=== PATIENT | male | born 1945 | race Asian ===

== ENCOUNTER → 2019-02-06 | Outpatient (CLI) | payer MEDICARE | END | disposition home or self-care (01) | LOC: PROCWHC3 12:18 | PROVIDERS: ATTEND Internal Medicine | DX: Z53.9 Procedure and treatment not carried out, unspecified reason (principal) ==

== ENCOUNTER 2019-07-27 12:01 | Inpatient (IN) | payer MEDICARE ==
[2019-07-27] MEDS ORDERED: SODIUM CHLORIDE 0.9% 500 ML 500 ML IV STA (12:10)
[2019-07-27 13:20] LABS: Basophils # (A) 0.3 k/uL (0-0.2); Basophils % (A) 3 %; Eosinophils # (A) 0.3 k/uL (0-0.7); Eosinophils % (A) 3 %; HCT 48.6 % (39.0-53.0); Lymphocytes # (A) 1.6 k/uL (1.0-4.8); Lymphocytes % (A) 14 %; MCH 31.3 pg (25.0-35.0); MCV 94.9 fL (80.0-100.0); Mean Platelet Volume 7.7; Monocytes # (A) 0.6 k/uL (0-1.0); Monocytes % (A) 5 %; Neutrophils # (A) 8.4 k/uL (1.3-7.7); Neutrophils % (A) 74 %; Platelet Count 240 k/uL (150-450); RBC 5.12 m/uL (4.30-5.90); WBC 11.4 k/uL (3.8-10.6)
[2019-07-27 13:29] LABS: Partial Thromboplastin Time 24.5 sec (22.0-30.0); Prothrombin Time 10.8 sec (9.0-12.0)
--- NOTE | 2019-07-27 13:30 | XR ---
EXAMINATION TYPE: XR chest 2V DATE OF EXAM: 07/27/2019 COMPARISON: 10/16/14 HISTORY: Shortness of breath TECHNIQUE: Frontal and lateral views of the chest are obtained. FINDINGS: Scattered senescent parenchymal changes noted. Hyperinflation compatible with COPD. No evidence for infiltrate. No evidence for atelectasis. Heart size is stable. Mediastinal structures are stable and grossly unremarkable. No evidence for hilar prominence. Degenerative changes dorsal spine. IMPRESSION: 1. No evidence for acute pulmonary disease.
[2019-07-27 13:33] LABS: ALT 14 U/L (4-49); AST 46 U/L (17-59); African American GFR (CKD) 57 (>60 ml/min/1.73 sqM); Albumin 4.1 g/dL (3.5-5.0); Alkaline Phosphatase 36 U/L (38-126); Anion Gap 8 mmol/L; Blood Urea Nitrogen 22 mg/dL (9-20); Calcium 8.9 mg/dL (8.4-10.2); Carbon Dioxide 31 mmol/L (22-30); Chloride 100 mmol/L (98-107); Creatine Kinase 96 U/L (55-170); Digoxin <0.4 ng/mL; Glucose 205 mg/dL (74-99); Magnesium 2.4 mg/dL (1.6-2.3); Non-African American GFR(CKD) 50 (>60 ml/min/1.73 sqM); Sodium 139 mmol/L (137-145); Total Bilirubin 0.8 mg/dL (0.2-1.3); Total Protein 7.3 g/dL (6.3-8.2)
--- NOTE | 2019-07-27 13:45 | ED ---
Arrhythmia/Palpitations HPI - General Chief Complaint: Arrhythmia/Palpitations Stated Complaint: CHEST PAIN Source: patient, family, EMS Mode of arrival: EMS Limitations: no limitations - History of Present Illness Initial Comments: The patient is a 74 male past medical history of diabetes, COPD and heart failure with AICD placement who presents to the emergency department from home. He sees Dr. Reynolds in office. He had a pacemaker placed by Dr. Garland in 2014. It is a [employer] device. States that today he was down in his basement with a friend doing some exertional work. States that he walked upstairs from the basement when his defibrillator went off. He sat down upstairs and states that one off again. He was different related to times in total. 2 times were witnessed by EMS when he was walking the stretcher. He is not on the monitor at this time. Patient states that he has had his defibrillator go off on him twice before however each time it was only once and he was never evaluated. States that the last his pacemaker was interrogated was one year ago in office. He denies feeling off prior to the defibrillation. Denies any chest pain or shortness of breath. Denies any recent infections. No nausea, vomiting or diarrhea. Denies any fevers or chills. No alleviating, precipitating or modifying factors - Related Data Home Medications Medication Instructions Recorded Confirmed Allopurinol 2 cap PO BID 10/09/14 07/27/19 Budesonide-Formot 160-4.5 Mcg 2 puff INHALATION RT-DAILY 10/09/14 07/27/19 [Symbicort 160-4.5 Mcg Inhaler] Furosemide 40 mg PO DAILY 10/09/14 07/27/19 Albuterol Nebulized [Ventolin 2.5 mg INHALATION RT-Q4H 07/27/19 07/27/19 Nebulized] Albuterol Sulfate [Proair Hfa] 2 puff INHALATION RT-DAILY 07/27/19 07/27/19 Apixaban [Eliquis] 2.5 mg PO BID 07/27/19 07/27/19 Aspirin EC [Ecotrin Low Dose] 81 mg PO DAILY 07/27/19 07/27/19 Calcitriol [Rocaltrol] 0.25 mcg PO MO 07/27/19 07/27/19 Docusate [Colace] 100 mg PO DAILY 07/27/19 07/27/19 Ketoconazole 2% Shampoo [Nizoral] 1 applic TOPICAL DIRECTED 07/27/19 07/27/19 Metoprolol Tartrate [Lopressor] 50 mg PO BID 07/27/19 07/27/19 Potassium Chloride ER [K-Dur 10] 10 meq PO DAILY 07/27/19 07/27/19 Rosuvastatin Calcium [Crestor] 40 mg PO DAILY 07/27/19 07/27/19 Tiotropium 18 Mcg/Puff [Spiriva] 1 puff INHALATION RT-DAILY 07/27/19 07/27/19 Allergies Allergy/AdvReac Type Severity Reaction Status Date / Time No Known Allergies Allergy Verified 07/27/19 12:42 Review of Systems ROS Statement: Those systems with pertinent positive or pertinent negative responses have been documented in the HPI. ROS Other: All systems not noted in ROS Statement are negative. Past Medical History Past Medical History: Heart Failure, COPD, Diabetes Mellitus, Hearing Disorder / Deafness, Hypertension, Musculoskeletal Disorder, Pneumonia Additional Past Medical History / Comment(s): HYDROCEPHALUS. CARDIOMYOPATHY. SEE DR SCHAFER'S H&P. GOUT. History of Any Multi-Drug Resistant Organisms: None Reported Past Surgical History: Ventriculoperitoneal Shunt Additional Past Surgical History / Comment(s): SHUNT 08/20/14. Past Anesthesia/Blood Transfusion Reactions: No Reported Reaction Past Psychological History: No Psychological Hx Reported Smoking Status: Former smoker General Exam Limitations: no limitations Course Vital Signs 07/27/19 07/27/19 07/27/19 12:11 12:23 12:30 Temperature 98.7 F Pulse Rate 110 H 103 H Respiratory 20 16 Rate Blood Pressure 129/111 136/100 136/100 O2 Sat by Pulse 99 98 Oximetry 07/27/19 07/27/19 07/27/19 13:00 13:30 14:00 Temperature Pulse Rate 98 93 90 Respiratory 18 17 18 Rate Blood Pressure 117/104 122/91 106/86 O2 Sat by Pulse 99 100 Oximetry 07/27/19 07/27/19 07/27/19 15:00 15:30 17:39 Temperature 98.5 F Pulse Rate 85 86 92 Respiratory 18 20 18 Rate Blood Pressure 110/87 108/87 108/80 O2 Sat by Pulse 100 98 Oximetry EKG Findings - EKG Comments: EKG Findings:: EKG demonstrates sinus tachycardia with frequent PVCs. There is a right bundle chucho block. Rate of 101. NH interval 232. QRS 144. QTC of 482. Medical Decision Making - Medical Decision Making Upon arrival in the patient is placed in room 5. A thorough history and physical exam was performed. We did interrogate the patient's device. I'm currently awaiting a report for this. I did recommend laboratory studies. Peripheral IV was established. Lab studies demonstrated with also, 11.4. Po tassium 5.2. Creatinine is 1.4 with a measurement of 1.1 in 2016. Glucose is 205. Troponin elevated at 0.218. BNP is 3830 digitoxin is drawn however found out that the patient was taken off of this medication. He has been taking all his other medications as directed. I did perform a chest x-ray which demonstrates no evidence of acute pulmonary disease. At this time I discussed diagnosis, differential and treatment options. I did recommend hospital admission for cardiology evaluation. I called and discussed the case with Dr. Woo who accepted admission for the patient. I will place cariology consult. He is currently awaiting a bed on the floor - Lab Data Result diagrams: 07/27/19 13:06 07/27/19 13:06 Lab Results 07/27/19 07/27/19 07/27/19 Range/Units 13:06 13:06 13:06 WBC 11.4 H (3.8-10.6) k/uL RBC 5.12 (4.30-5.90) m/uL Hgb 16.0 (13.0-17.5) gm/dL Hct 48.6 (39.0-53.0) % MCV 94.9 (80.0-100.0) fL MCH 31.3 (25.0-35.0) pg MCHC 33.0 (31.0-37.0) g/dL RDW 14.0 (11.5-15.5) % Plt Count 240 (150-450) k/uL Neutrophils % 74 % Lymphocytes % 14 % Monocytes % 5 % Eosinophils % 3 % Basophils % 3 % Neutrophils # 8.4 H (1.3-7.7) k/uL Lymphocytes # 1.6 (1.0-4.8) k/uL Monocytes # 0.6 (0-1.0) k/uL Eosinophils # 0.3 (0-0.7) k/uL Basophils # 0.3 H (0-0.2) k/uL PT (9.0-12.0) sec INR (<1.2) APTT (22.0-30.0) sec Sodium 139 (137-145) mmol/L Potassium 5.2 H (3.5-5.1) mmol/L Chloride 100 (98-107) mmol/L Carbon Dioxide 31 H (22-30) mmol/L Anion Gap 8 mmol/L BUN 22 H (9-20) mg/dL Creatinine 1.40 H (0.66-1.25) mg/dL Est GFR (CKD-EPI)AfAm 57 (>60 ml/min/1.73 sqM) Est GFR (CKD-EPI)NonAf 50 (>60 ml/min/1.73 sqM) Glucose 205 H (74-99) mg/dL Calcium 8.9 (8.4-10.2) mg/dL Magnesium 2.4 H (1.6-2.3) mg/dL Total Bilirubin 0.8 (0.2-1.3) mg/dL AST 46 (17-59) U/L ALT 14 (4-49) U/L Alkaline Phosphatase 36 L (38-126) U/L Creatine Kinase 96 (55-170) U/L Troponin I (0.000-0.034) ng/mL NT-Pro-B Natriuret Pep 3830 pg/mL Total Protein 7.3 (6.3-8.2) g/dL Albumin 4.1 (3.5-5.0) g/dL Digoxin <0.4 ng/mL 07/27/19 07/27/19 Range/Units 13:06 13:06 WBC (3.8-10.6) k/uL RBC (4.30-5.90) m/uL Hgb (13.0-17.5) gm/dL Hct (39.0-53.0) % MCV (80.0-100.0) fL MCH (25.0-35.0) pg MCHC (31.0-37.0) g/dL RDW (11.5-15.5) % Plt Count (150-450) k/uL Neutrophils % % Lymphocytes % % Monocytes % % Eosinophils % % Basophils % % Neutrophils # (1.3-7.7) k/uL Lymphocytes # (1.0-4.8) k/uL Monocytes # (0-1.0) k/uL Eosinophils # (0-0.7) k/uL Basophils # (0-0.2) k/uL PT 10.8 (9.0-12.0) sec INR 1.0 (<1.2) APTT 24.5 (22.0-30.0) sec Sodium (137-145) mmol/L Potassium (3.5-5.1) mmol/L Chloride (98-107) mmol/L Carbon Dioxide (22-30) mmol/L Anion Gap mmol/L BUN (9-20) mg/dL Creatinine (0.66-1.25) mg/dL Est GFR (CKD-EPI)AfAm (>60 ml/min/1.73 sqM) Est GFR (CKD-EPI)NonAf (>60 ml/min/1.73 sqM) Glucose (74-99) mg/dL Calcium (8.4-10.2) mg/dL Magnesium (1.6-2.3) mg/dL Total Bilirubin (0.2-1.3) mg/dL AST (17-59) U/L ALT (4-49) U/L Alkaline Phosphatase (38-126) U/L Creatine Kinase (55-170) U/L Troponin I 0.218 H* (0.000-0.034) ng/mL NT-Pro-B Natriuret Pep pg/mL Total Protein (6.3-8.2) g/dL Albumin (3.5-5.0) g/dL Digoxin ng/mL Disposition Clinical Impression: Defibrillator discharge Disposition: ADMITTED IP TO THIS [facility] Condition: Serious Is patient prescribed a controlled substance at d/c from ED?: No Decision to Admit Reason: Admit from EC Decision Date: 07/27/19 Decision Time: 13:45
[2019-07-27 13:46] LABS: Potassium 5.2 mmol/L (3.5-5.1)
[2019-07-27] MEDS ORDERED: NALOXONE 0.4 MG/ML 1 ML VIAL IV PRN (13:46)
[2019-07-27] MEDS: ATORVASTATIN 80 MG TAB PO STA ×2 (13:54→13:55)
[2019-07-27] MEDS: ALBUTEROL NEBULIZED 2.5 MG/3 ML INHALATION SCH ×2 (20:09→23:57)
[2019-07-27] MEDS: METOPROLOL TARTRATE 50 MG TAB PO SCH (22:14)
[2019-07-27] MEDS: APIXABAN 2.5 MG TABLET PO SCH (22:14)
[2019-07-27] MEDS: ALLOPURINOL 100 MG TAB PO SCH (22:14)
--- NOTE | 2019-07-27 22:14 | P.HPIM ---
History of Present Illness H&P Date: 07/27/19 Chief Complaint: AICD discharge Patient is a 74-year-old male with a known history of hypertension, diabetes type 2, chronic CHF with systolic dysfunction, nonischemic cardiomyopathy status post AICD placement and previous history of smoking presented to ER with complaints of defibrillator went off. Patient went to his basement with a friend and was doing some exertional work. Patient climbed back to upstairs from the basement and sat down in the cause. Certainly patient felt AICD discharge. Patient was trying to get up and AICD fired again. EMS was called and again AICD fired twice while EMS is at home. Patient was brought to the hospital for further evaluation. 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 Otherwise patient denied any recent illnesses. Denied any complaints of chest pain or shortness of breath during or after the episode. Patient felt tired after that. Denied any nausea vomiting or diaphoresis. No cough or sputum production. No fever no chills. EKG showed Sinus tachycardia with first degree AV block and right bundle branch block. Chest x-ray showed no acute cardiopulmonary process. BNP 3830 Troponin 0.218 and 0.933 Potassium 5.2 and creatinine 1.4 Review of Systems Constitutional: Patient denies any fever or chills . No generalized weakness or weight loss. Abdomen: Patient denied nausea vomiting and diarrhea and abdominal pain. Cardiovascular: Patient denies any chest pain or short of breath no palpitations. Respiratory: patient denied any cough is from production. No shortness of breath Neurologic: Patient denied any numbness or tingling headache. Musculoskeletal: Patient denies any complaints of joint swelling or deformity. Skin: Negative Psychiatric: Negative Endocrine: No heat or cold intolerance. No recent weight gain. Genitourinary: No dysuria or hematuria. All other 14 point ROS negative except the above Past Medical History Past Medical History: Heart Failure, COPD, Diabetes Mellitus, Hearing Disorder / Deafness, Hypertension, Musculoskeletal Disorder, Pneumonia Additional Past Medical History / Comment(s): HYDROCEPHALUS. CARDIOMYOPATHY. SEE DR SCHAFER'S H&P. GOUT. History of Any Multi-Drug Resistant Organisms: None Reported Past Surgical History: Ventriculoperitoneal Shunt Additional Past Surgical History / Comment(s): SHUNT 08/20/14. Past Anesthesia/Blood Transfusion Reactions: No Reported Reaction Past Psychological History: No Psychological Hx Reported Smoking Status: Former smoker Medications and Allergies Home Medications Medication Instructions Recorded Confirmed Type Allopurinol 2 cap PO BID 10/09/14 07/27/19 History Budesonide-Formot 160-4.5 Mcg 2 puff INHALATION RT-DAILY 10/09/14 07/27/19 History [Symbicort 160-4.5 Mcg Inhaler] Furosemide 40 mg PO DAILY 10/09/14 07/27/19 History Albuterol Nebulized [Ventolin 2.5 mg INHALATION RT-Q4H 07/27/19 07/27/19 History Nebulized] Albuterol Sulfate [Proair Hfa] 2 puff INHALATION RT-DAILY 07/27/19 07/27/19 History Apixaban [Eliquis] 2.5 mg PO BID 07/27/19 07/27/19 History Aspirin EC [Ecotrin Low Dose] 81 mg PO DAILY 07/27/19 07/27/19 History Calcitriol [Rocaltrol] 0.25 mcg PO MO 07/27/19 07/27/19 History Docusate [Colace] 100 mg PO DAILY 07/27/19 07/27/19 History Ketoconazole 2% Shampoo [Nizoral] 1 applic TOPICAL DIRECTED 07/27/19 07/27/19 History Metoprolol Tartrate [Lopressor] 50 mg PO BID 07/27/19 07/27/19 History Potassium Chloride ER [K-Dur 10] 10 meq PO DAILY 07/27/19 07/27/19 History Rosuvastatin Calcium [Crestor] 40 mg PO DAILY 07/27/19 07/27/19 History Tiotropium 18 Mcg/Puff [Spiriva] 1 puff INHALATION RT-DAILY 07/27/19 07/27/19 History Allergies Allergy/AdvReac Type Severity Reaction Status Date / Time No Known Allergies Allergy Verified 07/27/19 12:42 Physical Exam Vitals: Vital Signs Temp Pulse Resp BP Pulse Ox 07/27/19 20:22 97 07/27/19 20:10 95 07/27/19 17:39 92 18 108/80 98 07/27/19 15:30 98.5 F 86 20 108/87 100 07/27/19 15:00 85 18 110/87 07/27/19 14:00 90 18 106/86 07/27/19 13:30 93 17 122/91 100 07/27/19 13:00 98 18 117/104 99 07/27/19 12:30 103 H 16 136/100 98 07/27/19 12:23 98.7 F 110 H 20 136/100 99 07/27/19 12:11 129/111 Intake and Output 07/27/19 07/27/19 07/27/19 06:59 14:59 22:59 Other: Weight 67.585 kg PHYSICAL EXAMINATION: Patient is lying in the bed comfortably, no acute distress, awake alert and oriented.. HEENT: Normocephalic. Neck is supple. Pupils reactive. Nostrils clear. Oral cavity is moist. Ears reveal no drainage. Neck reveals no JVD, carotid bruits, or thyromegaly. CHEST EXAMINATION: Trachea is central. Symmetrical expansion. Lung mccord clear to auscultation and percussion. CARDIAC: Normal S1, S2 with no gallops. No murmurs ABDOMEN: Soft. Bowel sounds normal. No organomegaly. No abdominal bruits. Extremities: reveal no edema. No clubbing or cyanosis Neurologically awake, alert, oriented x3 with well-coordinated movements. No focal deficits noted Skin: No rash or skin lesions. Psychiatric: Coperative. Nonsuicidal Musculoskeletal: No joint swelling or deformity. Normal range of motion. Results CBC & Chem 7: 07/27/19 13:06 07/27/19 13:06 Labs: Abnormal Lab Results - Last 24 Hours (Table) 07/27/19 07/27/19 07/27/19 Range/Units 13:06 13:06 13:06 WBC 11.4 H (3.8-10.6) k/uL Neutrophils # 8.4 H (1.3-7.7) k/uL Basophils # 0.3 H (0-0.2) k/uL Potassium 5.2 H (3.5-5.1) mmol/L Carbon Dioxide 31 H (22-30) mmol/L BUN 22 H (9-20) mg/dL Creatinine 1.40 H (0.66-1.25) mg/dL Glucose 205 H (74-99) mg/dL Magnesium 2.4 H (1.6-2.3) mg/dL Alkaline Phosphatase 36 L (38-126) U/L Troponin I 0.218 H* (0.000-0.034) ng/mL 07/27/19 Range/Units 18:50 WBC (3.8-10.6) k/uL Neutrophils # (1.3-7.7) k/uL Basophils # (0-0.2) k/uL Potassium (3.5-5.1) mmol/L Carbon Dioxide (22-30) mmol/L BUN (9-20) mg/dL Creatinine (0.66-1.25) mg/dL Glucose (74-99) mg/dL Magnesium (1.6-2.3) mg/dL Alkaline Phosphatase (38-126) U/L Troponin I 0.933 H* (0.000-0.034) ng/mL Thrombosis Risk Factor Assmnt - DVT/VTE Prophylaxis DVT/VTE Prophylaxis: Pharmacologic Prophylaxis ordered Assessment and Plan Assessment: AICD discharge. Rule out arrhythmia. Nonischemic cardiomyopathy status post AICD placement in 2014 Chronic CHF with systolic dysfunction Hydrocephalus status post ventricular peritoneal shunt Hearing disorder COPD Previous history of smoking Hypertension Diabetes type 2 nausea independent History of gout Mild hyperkalemia potassium 5.1 admission Plan: Patient will be continued on telemetry monitoring. Continue with home medications including metoprolol. Cardiology was consulted. Pacemaker to be interrogated. Continue to monitor closely and further recommendations based on the clinical course. Time with Patient: Greater than 30
[2019-07-28] MEDS: ALBUTEROL NEBULIZED 2.5 MG/3 ML INHALATION SCH ×6 (03:54→23:05)
[2019-07-28 06:29] LABS: Glucose,Whole Blood 142 mg/dL (75-99)
[2019-07-28] MEDS: METOPROLOL TARTRATE 50 MG TAB PO SCH ×2 (08:47→21:49)
[2019-07-28] MEDS: APIXABAN 2.5 MG TABLET PO SCH (08:48)
[2019-07-28] MEDS: ATORVASTATIN 80 MG TAB PO SCH (08:48)
[2019-07-28] MEDS: ALLOPURINOL 100 MG TAB PO SCH ×2 (08:48→21:48)
[2019-07-28] MEDS: ASPIRIN 81 MG PO SCH (08:48)
[2019-07-28] MEDS: DOCUSATE 100 MG CAP PO SCH (08:48)
[2019-07-28] MEDS: FUROSEMIDE 40 MG TAB PO SCH (08:49)
[2019-07-28] MEDS ORDERED: POTASSIUM CHLORIDE ER 10 MEQ TAB.ER.PRT PO SCH (09:00)
[2019-07-28] MEDS: SYMBICORT 160-4.5 MCG INHALER INHALATION SCH (09:03)
[2019-07-28] MEDS: IPRATROPIUM 0.5 MG/2.5 ML NEBU INHALATION SCH ×4 (09:03→19:57)
[2019-07-28 09:09] LABS: HGB 15.4 gm/dL (13.0-17.5); MCH 31.3 pg (25.0-35.0); MCHC 32.8 g/dL (31.0-37.0); MCV 95.4 fL (80.0-100.0); Mean Platelet Volume 7.6; Platelet Count 267 k/uL (150-450); RBC 4.93 m/uL (4.30-5.90); WBC 13.1 k/uL (3.8-10.6)
[2019-07-28 09:20] LABS: Calcium 9.2 mg/dL (8.4-10.2); Magnesium 2.4 mg/dL (1.6-2.3); Potassium 4.2 mmol/L (3.5-5.1)
[2019-07-28] MEDS ORDERED: METOPROLOL TARTRATE 50 MG TAB PO STA (10:31)
--- NOTE | 2019-07-28 14:14 | P.CRDCN ---
History of Present Illness History of present illness: This is Carol Lazcano PA-C dictating a consult on this patient The patient was interviewed and examined by me as well as by Dr. Nuñez Case discussed with Dr. Nuñez and he agrees with the plan of care HPI Patient is a 74-year-old male with a past medical history of persistant atrial fibrillation and nonischemic cardiomyopathy status post ICD who presented after 4 ICD shocks. Patient follows with Dr. LETICIA Reynolds. He states he was in his basement walking towards the stairs when he experienced an ICD shock. He did not have any symptoms prior to the shock. he denies palpitations, dizziness, chest pressure, shortness of breath. He was not doing anything exertional prior to the shock. He made his way up the stairs and experienced 3 more shocks. He did not have any dizziness or loss of consciousness. No chest pain. In the preceding few weeks he had some dizziness on and off but denied any dizziness at that time. No loss of consciousness. His called EMS. EKG on arrival shows sinus mechanism with PVCs. No acute ST or T-wave changes. Labs were significant for BUN 22, creatinine 1.4, potassium 5.2, magnesium 2.4. Patient seen and examined sitting in his chair. No further shocks. Denies palpitations, dizziness, chest pain or shortness of breath. ROS: No fevers, chills or rigors, no cough, phlegm or expectoration, no nausea, vomiting or diarrhea, no hematuria, dysuria, no musculoskeletal complaints, no strokes or seizures, no skin lesions. EXAMINATION: Patient is afebrile, pulse in the 90s, respirations 18, blood pressure 122/80, oxygen saturation 94% on room air Patient seen and examined resting comfortably in his chair, in no acute distress Lungs are clear to auscultation bilaterally no wheezing rhonchi or crackles Heart is irregularly irregular. No audible murmurs No lower extremity edema REVIEW OF LABS, ECG & MEDICAL DATA WBC 13.1, hemoglobin 14.4, platelets 267, potassium 4, BUN 27, creatinine 1.56, magnesium 2.4 Troponin 0.933, 0.218 Had a few episodes of NSVT on telemetry IMPRESSION / ASSESSMENT: 74-year-old male presenting after 4 ICD shocks, likely inappropriate shocks due to atrial fibrillation with aberrancy Elevated troponin secondary to above Nonischemic cardiomyopathy status post ICD placement Paroxysmal atrial fibrillation, anticoagulated on eliquis PLAN: Device was interrogated, shows shows wide complex tachycardia consistent with aberrancy, device was reprogrammed, please see separate dictation by Dr. Nuñez for the details Increase metoprolol to 100 mg twice a day Increase eliquis to 5 mg twice a day, rate dose given his age weight and renal function Check TSH Past Medical History Past Medical History: Heart Failure, COPD, Diabetes Mellitus, Hearing Disorder / Deafness, Hypertension, Musculoskeletal Disorder, Pneumonia Additional Past Medical History / Comment(s): HYDROCEPHALUS. CARDIOMYOPATHY. SEE DR NUÑEZ'S H&P. GOUT. History of Any Multi-Drug Resistant Organisms: None Reported Past Surgical History: Ventriculoperitoneal Shunt Additional Past Surgical History / Comment(s): SHUNT 08/20/14. Past Anesthesia/Blood Transfusion Reactions: No Reported Reaction Past Psychological History: No Psychological Hx Reported Smoking Status: Former smoker Medications and Allergies Home Medications Medication Instructions Recorded Confirmed Type Allopurinol 2 cap PO BID 10/09/14 07/27/19 History Budesonide-Formot 160-4.5 Mcg 2 puff INHALATION RT-DAILY 10/09/14 07/27/19 History [Symbicort 160-4.5 Mcg Inhaler] Furosemide 40 mg PO DAILY 10/09/14 07/27/19 History Albuterol Nebulized [Ventolin 2.5 mg INHALATION RT-Q4H 07/27/19 07/27/19 History Nebulized] Albuterol Sulfate [Proair Hfa] 2 puff INHALATION RT-DAILY 07/27/19 07/27/19 History Apixaban [Eliquis] 2.5 mg PO BID 07/27/19 07/27/19 History Aspirin EC [Ecotrin Low Dose] 81 mg PO DAILY 07/27/19 07/27/19 History Calcitriol [Rocaltrol] 0.25 mcg PO MO 07/27/19 07/27/19 History Docusate [Colace] 100 mg PO DAILY 07/27/19 07/27/19 History Ketoconazole 2% Shampoo [Nizoral] 1 applic TOPICAL DIRECTED 07/27/19 07/27/19 History Metoprolol Tartrate [Lopressor] 50 mg PO BID 07/27/19 07/27/19 History Potassium Chloride ER [K-Dur 10] 10 meq PO DAILY 07/27/19 07/27/19 History Rosuvastatin Calcium [Crestor] 40 mg PO DAILY 07/27/19 07/27/19 History Tiotropium 18 Mcg/Puff [Spiriva] 1 puff INHALATION RT-DAILY 07/27/19 07/27/19 History Allergies Allergy/AdvReac Type Severity Reaction Status Date / Time No Known Allergies Allergy Verified 07/27/19 12:42 Physical Exam Vitals: Vital Signs Temp Pulse Pulse Resp BP BP Pulse Ox 07/28/19 11:00 97.7 F 114 H 18 122/80 94 L 07/28/19 09:28 90 07/28/19 09:03 88 07/28/19 08:47 63 18 07/28/19 08:00 98.2 F 63 18 135/79 94 L 07/28/19 04:40 18 132/75 96 07/28/19 04:00 18 07/28/19 00:11 92 07/28/19 00:00 18 07/27/19 23:58 96 07/27/19 20:22 97 07/27/19 20:10 95 07/27/19 20:00 95 18 107/83 99 07/27/19 19:00 97 17 100/85 07/27/19 18:00 93 20 108/80 07/27/19 17:39 92 18 108/80 98 07/27/19 17:00 93 19 115/92 07/27/19 16:00 85 18 105/81 07/27/19 15:30 98.5 F 86 20 108/87 100 07/27/19 15:05 98 F 18 95 07/27/19 15:00 85 18 110/87 Intake and Output 07/27/19 07/28/19 07/28/19 22:59 06:59 14:59 Intake Total 200 200 220 Balance 200 200 220 Intake: IV 20 Invasive Line 1 20 Oral 200 200 200 Other: Weight 67.585 kg 68.3 kg Results 07/28/19 08:55 07/28/19 08:55 Cardiac Enzymes 07/27/19 07/27/19 07/28/19 Range/Units 13:06 18:50 00:31 Troponin I 0.218 H* 0.933 H* 0.807 H* (0.000-0.034) ng/mL CBC 07/28/19 Range/Units 08:55 WBC 13.1 H (3.8-10.6) k/uL RBC 4.93 (4.30-5.90) m/uL Hgb 15.4 (13.0-17.5) gm/dL Hct 47.0 (39.0-53.0) % Plt Count 267 (150-450) k/uL Comprehensive Metabolic Panel 07/28/19 Range/Units 08:55 Sodium 140 (137-145) mmol/L Potassium 4.2 (3.5-5.1) mmol/L Chloride 98 (98-107) mmol/L Carbon Dioxide 32 H (22-30) mmol/L BUN 27 H (9-20) mg/dL Creatinine 1.56 H (0.66-1.25) mg/dL Glucose 158 H (74-99) mg/dL Calcium 9.2 (8.4-10.2) mg/dL Current Medications Generic Name Dose Route Start Last Admin Trade Name Freq PRN Reason Stop Dose Admin Albuterol Sulfate 2.5 mg 07/27/19 20:00 07/28/19 11:47 Ventolin Nebulized INHALATION Not Given RT-Q4H [facility] Allopurinol 200 mg 07/27/19 21:00 07/28/19 08:48 Zyloprim PO 200 mg BID [facility] Administration Apixaban 5 mg 07/28/19 21:00 Eliquis PO BID [facility] Aspirin 81 mg 07/28/19 09:00 07/28/19 08:48 Aspirin PO 81 mg DAILY [facility] Administration Atorvastatin Calcium 80 mg 07/28/19 09:00 07/28/19 08:48 Lipitor PO 80 mg DAILY [facility] Administration Budesonide/Formoterol Fumarate 2 puff 07/28/19 08:00 07/28/19 09:03 Symbicort 160-4.5 Mcg Inhaler INHALATION 2 puff RT-DAILY [facility] Administration Calcitriol 0.25 mcg 07/31/19 09:00 Rocaltrol PO MO [facility] Docusate Sodium 100 mg 07/28/19 09:00 07/28/19 08:48 Colace PO 100 mg DAILY [facility] Administration Furosemide 40 mg 07/28/19 09:00 07/28/19 08:49 Lasix PO 40 mg DAILY [facility] Administration Ipratropium Equality 0.5 mg 07/28/19 08:00 07/28/19 11:47 Atrovent Nebulized INHALATION Not Given RT-QID [facility] Metoprolol Tartrate 100 mg 07/28/19 21:00 Lopressor PO BID [facility] Naloxone HCl 0.2 mg 07/27/19 13:46 Narcan IV Q2M PRN Opioid Reversal Intake and Output 07/27/19 07/28/19 07/28/19 22:59 06:59 14:59 Intake Total 200 200 220 Balance 200 200 220 Intake: IV 20 Invasive Line 1 20 Oral 200 200 200 Other: Weight 67.585 kg 68.3 kg 07/28/19 08:55 07/28/19 08:55
[2019-07-28] MEDS ORDERED: ACETAMINOPHEN TAB 325 MG TAB PO STA (15:16)
[2019-07-28] MEDS: APIXABAN 5 MG TAB PO SCH (21:49)
--- NOTE | 2019-07-28 22:14 | P.PCN ---
Preoperative Diagnosis: Since ICD, [employer] sure RVR 1357-40 Q ICD Patient presented with multiple ICD shocks he had 6 episodes of ventricular ta chycardia ATP failed in all 6 cases and 6 shocks were delivered Patient remained in the tachycardia RV pacing threshold 0.5 V at 0.5 ms, R waves 11.4 glucose and pacing impedance of 440 ohms HV interval 78 ohms Tachycardias were reviewed The sustained tachycardia was a wide complex tachycardia likely aberrancy, slight radiation sex-linked in no impact of antitachycardia pacing or shocks Likely atrial fibrillation/atrial tachycardia with aberrancy. There was 0% morphology match but the intracardiac electrogram was similar There is also one episode of true nonsustained ventricular tachycardia The device was then reprogrammed according to the immediate area deprogramming with long detection intervals Impression Likely inappropriate ICD shocks secondary to atrial fibrillation/atrial tachyca rdia 1 nonsustained ventricular tachycardia asymptomatic no therapies delivered
[2019-07-29] MEDS: ALBUTEROL NEBULIZED 2.5 MG/3 ML INHALATION SCH (03:15)
[2019-07-29] MEDS ORDERED: ALBUTEROL NEBULIZED 2.5 MG/3 ML INHALATION PRN (06:18)
[2019-07-29] MEDS: IPRATROPIUM-ALBUTEROL 3 ML NEB INHALATION SCH ×3 (08:03→15:36)
[2019-07-29] MEDS: SYMBICORT 160-4.5 MCG INHALER INHALATION SCH (08:03)
[2019-07-29] MEDS: ALLOPURINOL 100 MG TAB PO SCH (08:53)
[2019-07-29] MEDS: DOCUSATE 100 MG CAP PO SCH (08:54)
[2019-07-29] MEDS: ATORVASTATIN 80 MG TAB PO SCH (08:54)
[2019-07-29] MEDS: FUROSEMIDE 40 MG TAB PO SCH (08:54)
[2019-07-29] MEDS: APIXABAN 5 MG TAB PO SCH (08:54)
[2019-07-29] MEDS: ASPIRIN 81 MG PO SCH (08:54)
[2019-07-29] MEDS: METOPROLOL TARTRATE 50 MG TAB PO SCH (08:55)
[2019-07-29 10:54] VITALS: TEMP 99.6
[2019-07-29 13:38] VITALS: BP 104/70; PULSE 61; RESP 18
--- NOTE | 2019-07-29 16:31 | P.PN ---
Subjective This is Carol Lazcano PA-C dictating a progress note on this patient The patient was interviewed and examined by me as well as by Dr. Nuñez Case discussed with Dr. Nuñez and he agrees with the plan of care HPI/interval history Patient is a 74-year-old male with a past medical history of persistant atrial fibrillation and nonischemic cardiomyopathy status post ICD who presented after 4 ICD shocks. His device was interrogated and shows a wide complex tachycardia consistent with aberrancy. His device was reprogrammed by Dr. Nuñez. We increased his metoprolol to 100 mg twice daily and he seems to have tolerated that well. Patient seen and examined in his room. Feels well, denies any chest pain, palpitations, shortness of breath dizziness or syncope. EXAMINATION Patient is afebrile, pulse in the 60s, respirations 18, blood pressure 104/70, oxygen saturation 98% Lungs are clear to auscultation bilaterally Heart is irregularly irregular. No audible murmurs No lower extremity edema REVIEW OF LABS, ECG WBC 13, hemoglobin 15, platelets 267, potassium 4.2, BUN 27, creatinine 1.56 Telemetry reveals few short runs of NSVT IMPRESSION / ASSESSMENT: 74-year-old male presenting after 4 ICD shocks, likely inappropriate shocks due to atrial fibrillation with aberrancy, no further shocks during his admission Elevated troponin secondary to above Nonischemic cardiomyopathy status post ICD placement Paroxysmal atrial fibrillation, anticoagulated on eliquis PLAN: Continue metoprolol 100 mg twice a day Continue maximal cardiomyopathy medications Patient may be discharged home from a cardiac standpoint and plan to schedule NIPS with Dr. Nuñez in the next few weeks Objective - Vital Signs Vital signs: Vital Signs Temp 99.6 F 07/29/19 08:15 Pulse 96 07/29/19 11:48 Resp 18 07/29/19 11:30 BP 104/70 07/29/19 11:30 Pulse Ox 98 07/29/19 11:30 Intake & Output 07/28/19 07/29/19 07/29/19 18:59 06:59 18:59 Intake Total 430 400 240 Output Total 600 Balance -170 400 240 Weight 67.6 kg Intake: IV 30 Invasive Line 1 30 Oral 400 400 240 Output: Urine 600 Other: Voiding Method Toilet # Voids 2 - Labs CBC & Chem 7: 07/28/19 08:55 07/28/19 08:55
[2019-07-31] MEDS ORDERED: CALCITRIOL 0.25 MCG CAP PO SCH (09:00)
== END 2019-07-29 15:45 | disposition home or self-care (01) | DRG 309 ==
LOC: EC 12:01 → 1SOBS 13:46 → 3SCARD 16:59 → OBSVTOIN 07-28 13:49
PROVIDERS: ADMIT Internal Medicine; ATTEND Internal Medicine
PROC: 4B02XTZ Measurement of Cardiac Defibrillator, External Approach (ICD-10-PCS; principal; 2019-07-28)
DX: I48.0 Paroxysmal atrial fibrillation (principal); G91.9 Hydrocephalus, unspecified; I50.22 Chronic systolic (congestive) heart failure; I47.2 Ventricular tachycardia; I42.8 Other cardiomyopathies; I11.0 Hypertensive heart disease with heart failure; E11.9 Type 2 diabetes mellitus without complications; E87.5 Hyperkalemia; H91.90 Unspecified hearing loss, unspecified ear; I44.0 Atrioventricular block, first degree; I45.10 Unspecified right bundle-branch block; J44.9 Chronic obstructive pulmonary disease, unspecified; M10.9 Gout, unspecified; R79.89 Other specified abnormal findings of blood chemistry; Z79.01 Long term (current) use of anticoagulants; Z79.51 Long term (current) use of inhaled steroids; Z79.82 Long term (current) use of aspirin; Z79.899 Other long term (current) drug therapy; Z87.891 Personal history of nicotine dependence; Z95.810 Presence of automatic (implantable) cardiac defibrillator; Z98.2 Presence of cerebrospinal fluid drainage device; Z87.01 Personal history of pneumonia (recurrent)
CPT/HCPCS: 36415; 71046; 80048; 80053; 80162; 82550; 83735; 83880; 84443; 84484; 85025; 85027; 85610; 85730; 93005; 94640; 94760; 96360; 99285

== ENCOUNTER 2022-04-04 22:49 | Inpatient (IN) | payer MEDICARE ==
[2022-04-04] MEDS ORDERED: SODIUM CHLORIDE 0.9% 1,000 ML IV STA ×2 (22:52→23:39)
--- NOTE | 2022-04-04 22:53 | ED ---
Weakness HPI - General Stated complaint: SOB Time Seen by Provider: 04/04/22 22:52 Source: RN notes reviewed, old records reviewed Limitations: no limitations - History of Present Illness MD Complaint: generalized weakness, lack of energy -: days(s) Location: generalized Severity: moderate Severity scale (1-10): 7 Consistency: constant, intermittent Improves with: evening Context: recent illness, history of similar Associated Symptoms: chest pain, loss of appetite, nausea/vomiting, shortness of breath - Related Data Home Medications Medication Instructions Recorded Confirmed Budesonide-Formot 160-4.5 Mcg 2 puff INHALATION RT-DAILY 10/09/14 07/27/19 [Symbicort 160-4.5 Mcg Inhaler] Furosemide 40 mg PO DAILY 10/09/14 07/27/19 allopurinoL [Allopurinol] 2 cap PO BID 10/09/14 07/27/19 Albuterol Nebulized [Ventolin 2.5 mg INHALATION RT-Q4H 07/27/19 07/27/19 Nebulized] Albuterol Sulfate [Proair Hfa] 2 puff INHALATION RT-DAILY 07/27/19 07/27/19 Aspirin EC [Ecotrin Low Dose] 81 mg PO DAILY 07/27/19 07/27/19 Docusate [Colace] 100 mg PO DAILY 07/27/19 07/27/19 Ketoconazole 2% Shampoo [Nizoral] 1 applic TOPICAL DIRECTED 07/27/19 07/27/19 Rosuvastatin Calcium [Crestor] 40 mg PO DAILY 07/27/19 07/27/19 Tiotropium 18 Mcg/Puff [Spiriva] 1 puff INHALATION RT-DAILY 07/27/19 07/27/19 calcitrioL [Rocaltrol] 0.25 mcg PO MO 07/27/19 07/27/19 Previous Rx's Medication Instructions Recorded Apixaban [Eliquis] 5 mg PO BID #60 tab 07/29/19 Metoprolol Tartrate [Lopressor] 100 mg PO BID tab 07/29/19 Allergies Allergy/AdvReac Type Severity Reaction Status Date / Time No Known Allergies Allergy Verified 07/27/19 12:42 Review of Systems ROS Statement: Those systems with pertinent positive or pertinent negative responses have been documented in the HPI. ROS Other: All systems not noted in ROS Statement are negative. Past Medical History Past Medical History: Heart Failure, COPD, Diabetes Mellitus, Hearing Disorder / Deafness, Hypertension, Musculoskeletal Disorder, Pneumonia Additional Past Medical History / Comment(s): HYDROCEPHALUS. CARDIOMYOPATHY. SEE DR SCHAFER'S H&P. GOUT. History of Any Multi-Drug Resistant Organisms: None Reported Past Surgical History: Ventriculoperitoneal Shunt Additional Past Surgical History / Comment(s): SHUNT 08/20/14. Past Anesthesia/Blood Transfusion Reactions: No Reported Reaction Past Psychological History: No Psychological Hx Reported General Exam General appearance: alert, in no apparent distress Head exam: Present: atraumatic, normocephalic, normal inspection Eye exam: Present: normal appearance, PERRL, EOMI. Absent: scleral icterus, conjunctival injection, periorbital swelling ENT exam: Present: normal exam, mucous membranes moist Neck exam: Present: normal inspection. Absent: tenderness, meningismus, lympha denopathy Respiratory exam: Present: normal lung sounds bilaterally. Absent: respiratory distress, wheezes, rales, rhonchi, stridor Cardiovascular Exam: Present: regular rate, normal rhythm, normal heart sounds. Absent: systolic murmur, diastolic murmur, rubs, gallop, clicks GI/Abdominal exam: Present: soft, normal bowel sounds. Absent: distended, tenderness, guarding, rebound, rigid Extremities exam: Present: normal inspection, full ROM, normal capillary refill. Absent: tenderness, pedal edema, joint swelling, calf tenderness Back exam: Present: normal inspection Neurological exam: Present: alert, oriented X3, CN II-XII intact Psychiatric exam: Present: normal affect, normal mood Skin exam: Present: warm, dry, intact, normal color. Absent: rash Course Vital Signs 04/04/22 04/04/22 04/04/22 22:51 23:04 23:06 Temperature 97.6 F Pulse Rate 133 H 131 H Respiratory 26 H Rate Blood Pressure 142/99 O2 Sat by Pulse 100 96 Oximetry 04/04/22 04/04/22 04/04/22 23:21 23:35 23:37 Temperature 97.6 F Pulse Rate 129 H 139 H Respiratory 27 H Rate Blood Pressure 97/73 O2 Sat by Pulse 30 L Oximetry EKG Findings - EKG Comments: EKG Findings:: EKG is a flutter 136 QRS 154 QTc 414 Medical Decision Making - Lab Data Result diagrams: 04/04/22 23:21 04/04/22 23:21 Lab Results 04/04/22 04/04/22 04/04/22 Range/Units 23:21 23:21 23:21 WBC 10.1 (3.8-10.6) k/uL RBC 4.74 (4.30-5.90) m/uL Hgb 15.1 (13.0-17.5) gm/dL Hct 46.7 (39.0-53.0) % MCV 98.4 (80.0-100.0) fL MCH 31.8 (25.0-35.0) pg MCHC 32.4 (31.0-37.0) g/dL RDW 13.1 (11.5-15.5) % Plt Count 152 (150-450) k/uL MPV 10.0 Neutrophils % 82 % Lymphocytes % 10 % Monocytes % 6 % Eosinophils % 1 % Basophils % 0 % Neutrophils # 8.3 H (1.3-7.7) k/uL Lymphocytes # 1.0 (1.0-4.8) k/uL Monocytes # 0.6 (0-1.0) k/uL Eosinophils # 0.1 (0-0.7) k/uL Basophils # 0.0 (0-0.2) k/uL Hypochromasia Moderate PT 20.3 H (9.0-12.0) sec INR 2.0 H (<1.2) APTT 29.0 (22.0-30.0) sec Sodium (137-145) mmol/L Potassium (3.5-5.1) mmol/L Chloride (98-107) mmol/L Carbon Dioxide (22-30) mmol/L Anion Gap mmol/L BUN (9-20) mg/dL Creatinine (0.66-1.25) mg/dL Est GFR (CKD-EPI)AfAm (>60 ml/min/1.73 sqM) Est GFR (CKD-EPI)NonAf (>60 ml/min/1.73 sqM) Glucose (74-99) mg/dL Plasma Lactic Acid Simeon 7.8 H* (0.7-2.0) mmol/L Calcium (8.4-10.2) mg/dL Phosphorus (2.5-4.5) mg/dL Magnesium (1.6-2.3) mg/dL Total Bilirubin (0.2-1.3) mg/dL AST (17-59) U/L ALT (4-49) U/L Alkaline Phosphatase (38-126) U/L Troponin I (0.000-0.034) ng/mL Total Protein (6.3-8.2) g/dL Albumin (3.5-5.0) g/dL TSH (0.465-4.680) mIU/L 04/04/22 04/04/22 Range/Units 23:21 23:21 WBC (3.8-10.6) k/uL RBC (4.30-5.90) m/uL Hgb (13.0-17.5) gm/dL Hct (39.0-53.0) % MCV (80.0-100.0) fL MCH (25.0-35.0) pg MCHC (31.0-37.0) g/dL RDW (11.5-15.5) % Plt Count (150-450) k/uL MPV Neutrophils % % Lymphocytes % % Monocytes % % Eosinophils % % Basophils % % Neutrophils # (1.3-7.7) k/uL Lymphocytes # (1.0-4.8) k/uL Monocytes # (0-1.0) k/uL Eosinophils # (0-0.7) k/uL Basophils # (0-0.2) k/uL Hypochromasia PT (9.0-12.0) sec INR (<1.2) APTT (22.0-30.0) sec Sodium 132 L (137-145) mmol/L Potassium 5.8 H (3.5-5.1) mmol/L Chloride 93 L (98-107) mmol/L Carbon Dioxide 16 L (22-30) mmol/L Anion Gap 23 mmol/L BUN 19 (9-20) mg/dL Creatinine 2.06 H (0.66-1.25) mg/dL Est GFR (CKD-EPI)AfAm 35 (>60 ml/min/1.73 sqM) Est GFR (CKD-EPI)NonAf 31 (>60 ml/min/1.73 sqM) Glucose 139 H (74-99) mg/dL Plasma Lactic Acid Simeon (0.7-2.0) mmol/L Calcium 8.7 (8.4-10.2) mg/dL Phosphorus 5.1 H (2.5-4.5) mg/dL Magnesium 2.5 H (1.6-2.3) mg/dL Total Bilirubin 1.8 H (0.2-1.3) mg/dL AST 78 H (17-59) U/L ALT 39 (4-49) U/L Alkaline Phosphatase 47 (38-126) U/L Troponin I 0.104 H* (0.000-0.034) ng/mL Total Protein 6.9 (6.3-8.2) g/dL Albumin 4.3 (3.5-5.0) g/dL TSH 0.112 L (0.465-4.680) mIU/L Disposition Clinical Impression: Acute pulmonary edema, Acute exacerbation of chronic obstructive pulmonary disease, Hypoxia, Atrial fibrillation with rapid ventricular response, Weakness, AMS (altered mental status), Elevated troponin Disposition: ADMITTED IP TO THIS HOSP Condition: Serious Is patient prescribed a controlled substance at d/c from ED?: No Referrals: [facility],Clinic [Primary Care Provider] - 1-2 days
[2022-04-04] MEDS ORDERED: LORazepam 2 MG/ML INJ IV STA (22:54)
[2022-04-04] MEDS ORDERED: MORPHINE SULFATE 2 MG/ML SYRINGE IVP STA (22:54)
[2022-04-04] MEDS ORDERED: IPRATROPIUM-ALBUTEROL 3 ML NEB INHALATION STA (22:59)
--- NOTE | 2022-04-04 23:13 | XR ---
EXAMINATION TYPE: XR chest 1V portable DATE OF EXAM: 04/04/2022 COMPARISON: 09/24/2021 HISTORY: Chest pain TECHNIQUE: Single view FINDINGS: There is no heart failure nor confluent pneumonic infiltrate. There is slight blunting righ t costophrenic angle. There is left axillary pacemaker. There are chest leads. Heart appears slightly enlarged. There is right-sided ventricular shunt catheter not well evaluated. IMPRESSION: Mild cardiomegaly. No heart failure. There is probably a tiny right pleural effusion.
[2022-04-04 23:30] LABS: Basophils % (A) 0 %; Eosinophils # (A) 0.1 k/uL (0-0.7); Eosinophils % (A) 1 %; HCT 46.7 % (39.0-53.0); HGB 15.1 gm/dL (13.0-17.5); Hypochromasia Moderate; Lymphocytes % (A) 10 %; MCH 31.8 pg (25.0-35.0); MCHC 32.4 g/dL (31.0-37.0); MCV 98.4 fL (80.0-100.0); Monocytes # (A) 0.6 k/uL (0-1.0); Monocytes % (A) 6 %; Neutrophils # (A) 8.3 k/uL (1.3-7.7); Neutrophils % (A) 82 %; Platelet Count 152 k/uL (150-450); RBC 4.74 m/uL (4.30-5.90); RDW 13.1 % (11.5-15.5); WBC 10.1 k/uL (3.8-10.6)
[2022-04-04 23:43] LABS: Albumin 4.3 g/dL (3.5-5.0); Calcium 8.7 mg/dL (8.4-10.2); Magnesium 2.5 mg/dL (1.6-2.3); Phosphorus 5.1 mg/dL (2.5-4.5); Total Bilirubin 1.8 mg/dL (0.2-1.3); Total Protein 6.9 g/dL (6.3-8.2)
[2022-04-04 23:45] LABS: Prothrombin Time 20.3 sec (9.0-12.0)
[2022-04-04 23:54] LABS: Potassium 5.8 mmol/L (3.5-5.1)
--- NOTE | 2022-04-05 00:06 | CT ---
EXAMINATION TYPE: CT brain wo con DATE OF EXAM: 04/04/2022 COMPARISON: 12/20/2015 HISTORY: AMS. prior on PACS CT DLP: 2316.4 mGycm Automated exposure control for dose reduction was used. CT brain without contrast. There is cerebral cortical atrophy. There is no mass effect or midline shift. There is no sign of int racranial hemorrhage. There is a right side shunt catheter with the tip in the anterior aspect of the right temporal lobe near the hippocampus. No hydrocephalus. The calvarium is intact. Skull base is i ntact. There is normal aeration of the mastoid sinuses. IMPRESSION: Right-sided shunt catheter with the tip in the region of temporal horn of the right lateral ventricle and not changed in position compared to old exam. No hydrocephalus. Cerebral atrophy. No acute intra cranial abnormality. There is clearing of the bilateral maxillary sinusitis compared to old exam.
[2022-04-05] MEDS ORDERED: DILTIAZEM 5 MG/ML 5 ML VIAL IVP STA (00:30)
[2022-04-05] MEDS ORDERED: SODIUM CHLORIDE 0.9% 1,000 ML IV SCH (00:30)
[2022-04-05] MEDS ORDERED: ONDANSETRON 4 MG/2 ML VIAL IVP PRN (00:30)
[2022-04-05] MEDS ORDERED: NALOXONE 0.4 MG/ML 1 ML VIAL IV PRN (00:30)
[2022-04-05] MEDS ORDERED: IPRATROPIUM-ALBUTEROL 3 ML NEB INHALATION STA (00:35)
[2022-04-05] MEDS ORDERED: LORazepam 2 MG/ML INJ IV ONE (03:25)
[2022-04-05 03:36] LABS: Glucose,Whole Blood 182 mg/dL (70-110)
[2022-04-05] MEDS ORDERED: IPRATROPIUM-ALBUTEROL 3 ML NEB INHALATION PRN (03:50)
--- NOTE | 2022-04-05 04:03 | P.HPIM ---
History of Present Illness H&P Date: 04/05/22 Chief Complaint: increase SOB 77 year old male with CHF s/p ICD, afib on eliquis , COPD with emphysema , h/o hydrocephalus s./p shunt. patient is confused and combative unable to provide any meaningful history , at bed side answering all questions,. she reports a week long of gradually worsening SOB, and increase in his heart rate , no report of coughing, fever, chills, or chest pain. her self , provides only limited history , as she reports that the patient has been resisting care, refusing to take meds, and would like to be left alone. she has been worried about his well being , and forced him to come to the hospital today as he was getting worse overall. no report of GI bleeding. workup in the ED showed Afib wtih RVR CXR no abhinav CHF blood work showed elevated trops , trending down CKD with possible worsening renal function however, patient is combative and refusing care, he pulls on his IVs Review of Systems ROS unobtainable: due to mental status Past Medical History Past Medical History: Heart Failure, COPD, Diabetes Mellitus, Hearing Disorder / Deafness, Hypertension, Musculoskeletal Disorder, Pneumonia Additional Past Medical History / Comment(s): HYDROCEPHALUS. CARDIOMYOPATHY. SEE DR SCHAFER'S H&P. GOUT. History of Any Multi-Drug Resistant Organisms: None Reported Past Surgical History: Ventriculoperitoneal Shunt Additional Past Surgical History / Comment(s): SHUNT 08/20/14. Past Anesthesia/Blood Transfusion Reactions: No Reported Reaction Past Psychological History: No Psychological Hx Reported - Past Family History family Family Medical History: Coronary Artery Disease (CAD) Medications and Allergies Home Medications Medication Instructions Recorded Confirmed Type Budesonide-Formot 160-4.5 Mcg 2 puff INHALATION RT-DAILY 10/09/14 07/27/19 History [Symbicort 160-4.5 Mcg Inhaler] Furosemide 40 mg PO DAILY 10/09/14 07/27/19 History allopurinoL [Allopurinol] 2 cap PO BID 10/09/14 07/27/19 History Albuterol Nebulized [Ventolin 2.5 mg INHALATION RT-Q4H 07/27/19 07/27/19 History Nebulized] Albuterol Sulfate [Proair Hfa] 2 puff INHALATION RT-DAILY 07/27/19 07/27/19 History Aspirin EC [Ecotrin Low Dose] 81 mg PO DAILY 07/27/19 07/27/19 History Docusate [Colace] 100 mg PO DAILY 07/27/19 07/27/19 History Ketoconazole 2% Shampoo [Nizoral] 1 applic TOPICAL DIRECTED 07/27/19 07/27/19 History Rosuvastatin Calcium [Crestor] 40 mg PO DAILY 07/27/19 07/27/19 History Tiotropium 18 Mcg/Puff [Spiriva] 1 puff INHALATION RT-DAILY 07/27/19 07/27/19 History calcitrioL [Rocaltrol] 0.25 mcg PO MO 07/27/19 07/27/19 History Apixaban [Eliquis] 5 mg PO BID #60 tab 07/29/19 Rx Metoprolol Tartrate [Lopressor] 100 mg PO BID tab 07/29/19 Rx Allergies Allergy/AdvReac Type Severity Reaction Status Date / Time No Known Allergies Allergy Verified 07/27/19 12:42 Physical Exam Vitals: Vital Signs Temp Pulse Resp BP Pulse Ox 04/05/22 03:44 115 H 30 H 103/84 98 04/05/22 02:34 112 H 24 106/87 97 04/05/22 02:02 102 H 90/74 04/05/22 01:53 133 H 111/82 04/05/22 01:32 138 H 26 H 106/81 98 04/05/22 01:10 139 H 04/05/22 00:55 112 H 26 H 98/78 95 04/05/22 00:54 118 H 04/04/22 23:37 97.6 F 04/04/22 23:35 139 H 27 H 97/73 30 L 04/04/22 23:21 129 H 04/04/22 23:06 131 H 04/04/22 23:04 96 04/04/22 22:51 97.6 F 133 H 26 H 142/99 100 Intake and Output 04/04/22 04/04/22 04/05/22 14:59 22:59 06:59 Other: Weight 64.773 kg limited exam , patient resists care and combative Constitutional: combative uncooperative, resists care , does not answer any questions Eyes: resists opening his eyes for exam ENMT: NC/AT cant examine his Oropharynx Neck: No carotid bruits No thyromegaly Lungs: diminished breath sounds with expiratory wheezing Clear to percussion Cardiovascular: Heart tachycardia No murmurs, gallops, or rubs No peripheral edema Abdominal: Soft Nontender, no guarding, rebound or rigidity Abdomen moving with respiration Normoactive bowel sounds No hepatomegaly, No splenomegaly No palpable mass No abdominal wall hernia noted Skin: Normal temperature, tone, texture, turgor Psychiatric: awake, combative, resists care Neuro very strong , kicking and punching, resisting care. Lymphatics: no palpable cervical or supraclavicular lymph nodes Results CBC & Chem 7: 04/04/22 23:21 04/04/22 23:21 Labs: Abnormal Lab Results - Last 24 Hours (Table) 04/04/22 04/04/22 04/04/22 Range/Units 23:21 23:21 23:21 Neutrophils # 8.3 H (1.3-7.7) k/uL PT 20.3 H (9.0-12.0) sec INR 2.0 H (<1.2) Sodium (137-145) mmol/L Potassium (3.5-5.1) mmol/L Chloride (98-107) mmol/L Carbon Dioxide (22-30) mmol/L Creatinine (0.66-1.25) mg/dL Glucose (74-99) mg/dL POC Glucose (mg/dL) (70-110) mg/dL Plasma Lactic Acid Simeon 7.8 H* (0.7-2.0) mmol/L Phosphorus (2.5-4.5) mg/dL Magnesium (1.6-2.3) mg/dL Total Bilirubin (0.2-1.3) mg/dL AST (17-59) U/L Troponin I (0.000-0.034) ng/mL TSH (0.465-4.680) mIU/L 04/04/22 04/04/22 04/05/22 Range/Units 23:21 23:21 02:23 Neutrophils # (1.3-7.7) k/uL PT (9.0-12.0) sec INR (<1.2) Sodium 132 L (137-145) mmol/L Potassium 5.8 H (3.5-5.1) mmol/L Chloride 93 L (98-107) mmol/L Carbon Dioxide 16 L (22-30) mmol/L Creatinine 2.06 H (0.66-1.25) mg/dL Glucose 139 H (74-99) mg/dL POC Glucose (mg/dL) (70-110) mg/dL Plasma Lactic Acid Simeon (0.7-2.0) mmol/L Phosphorus 5.1 H (2.5-4.5) mg/dL Magnesium 2.5 H (1.6-2.3) mg/dL Total Bilirubin 1.8 H (0.2-1.3) mg/dL AST 78 H (17-59) U/L Troponin I 0.104 H* 0.084 H* (0.000-0.034) ng/mL TSH 0.112 L (0.465-4.680) mIU/L 04/05/22 04/05/22 Range/Units 02:23 03:35 Neutrophils # (1.3-7.7) k/uL PT (9.0-12.0) sec INR (<1.2) Sodium (137-145) mmol/L Potassium (3.5-5.1) mmol/L Chloride (98-107) mmol/L Carbon Dioxide (22-30) mmol/L Creatinine (0.66-1.25) mg/dL Glucose (74-99) mg/dL POC Glucose (mg/dL) 182 H (70-110) mg/dL Plasma Lactic Acid Simeon 3.8 H* (0.7-2.0) mmol/L Phosphorus (2.5-4.5) mg/dL Magnesium (1.6-2.3) mg/dL Total Bilirubin (0.2-1.3) mg/dL AST (17-59) U/L Troponin I (0.000-0.034) ng/mL TSH (0.465-4.680) mIU/L Assessment and Plan Assessment: afib with RVR acute COPD exacerbation lactic acidosis AMPARO on CKD elevated trops , trending down hyperkalemia plan duonb PRN q2hr supplemental oxygen systemic IV steroids doxy BID check covid , influenza IVF hydration with normall saline , avoid fluid overload. serial lung exam follow up lactic acid trops trending down monitor renal function monitor urine output given bolus cardizem , HR under better control , no cardizem gtt was started continue eliquis patient is not currently on metoprolol at home IV insulin 10 units with 1 amp D 50 follow up K level full code DVT PPX on eliquis for afib
--- NOTE | 2022-04-05 04:05 | P.MHFACE ---
Face to Face Restrain/Seclus - Evaluation Patient's Immediate Situation: Endangers self safety, Violent behavior Patient's Reaction to the Intervention: Uncooperative, Anxious, Combative, Restless, Resistive to care Patient's Medical & Behavioral Condition: Awake, Confused, Agitated Need to Continue or Terminate Restraint or Seclusion: Continue Face to Face Eval of Restraint Date: 04/05/22 Face to Face Eval of Restraint Time: 03:35
[2022-04-05] MEDS ORDERED: INSULIN REGULAR 100 UNIT/ML VIAL (IV) IV ONE (04:07)
[2022-04-05] MEDS ORDERED: DEXTROSE 50% SYRINGE 50 ML IVP STA (04:07)
[2022-04-05] MEDS: ALBUTEROL NEBULIZED 2.5 MG/3 ML INHALATION SCH ×2 (04:28→08:26)
[2022-04-05] MEDS ORDERED: DEXTROSE 5% IN WATER 100 ML with AMIODARONE 150 MG IV ONE (04:45)
[2022-04-05] MEDS ORDERED: AMIODARONE 360 MG in DEXTROSE 5% IN WATER 200 ML IV ONE ×2 (05:00)
[2022-04-05 05:38] VITALS: TEMP 96.6
[2022-04-05] MEDS ORDERED: methylPREDNISolone SOD SUCCI 40 MG/ML 1 ML VIAL IV SCH (06:00)
[2022-04-05 06:04] LABS: Glucose,Whole Blood 281 mg/dL (70-110)
[2022-04-05] MEDS ORDERED: LEVOTHYROXINE 50 MCG TAB PO SCH (06:30)
[2022-04-05] MEDS ORDERED: LORazepam 2 MG/ML INJ IV PRN (07:15)
[2022-04-05 07:16] LABS: Albumin 3.9 g/dL (3.5-5.0); Calcium 7.5 mg/dL (8.4-10.2); Potassium 5.4 mmol/L (3.5-5.1); Total Protein 6.4 g/dL (6.3-8.2)
[2022-04-05] MEDS ORDERED: MORPHINE SULFATE 2 MG/ML SYRINGE IV PRN (07:59)
[2022-04-05] MEDS ORDERED: LORazepam 1 MG/0.5 ML VIAL IV PRN (07:59)
[2022-04-05] MEDS ORDERED: SYMBICORT 160-4.5 MCG INHALER INHALATION SCH (08:00)
[2022-04-05] MEDS ORDERED: TAMSULOSIN 0.4 MG CAP.ER.24H PO SCH (08:30)
[2022-04-05] MEDS ORDERED: DOXYCYCLINE 100 MG CAP PO SCH (09:00)
[2022-04-05] MEDS ORDERED: APIXABAN 5 MG TAB PO SCH (09:00)
[2022-04-05] MEDS ORDERED: ASPIRIN 81 MG PO SCH (09:00)
[2022-04-05] MEDS ORDERED: ATORVASTATIN 80 MG TAB PO SCH (09:00)
--- NOTE | 2022-04-05 09:14 | ED ---
Medical Decision Making - Medical Decision Making Patient was waiting in the emergency room for a bed upstairs, patient had been made comfort care and was awaiting hospice evaluation. Patient deteriorated, bradycardia with agonal respirations and ultimately became asystole. Time of 09 - Lab Data Result diagrams: 04/04/22 23:21 04/05/22 05:08 Lab Results 04/04/22 04/04/22 04/04/22 Range/Units 23:21 23:21 23:21 WBC 10.1 (3.8-10.6) k/uL RBC 4.74 (4.30-5.90) m/uL Hgb 15.1 (13.0-17.5) gm/dL Hct 46.7 (39.0-53.0) % MCV 98.4 (80.0-100.0) fL MCH 31.8 (25.0-35.0) pg MCHC 32.4 (31.0-37.0) g/dL RDW 13.1 (11.5-15.5) % Plt Count 152 (150-450) k/uL MPV 10.0 Neutrophils % 82 % Lymphocytes % 10 % Monocytes % 6 % Eosinophils % 1 % Basophils % 0 % Neutrophils # 8.3 H (1.3-7.7) k/uL Lymphocytes # 1.0 (1.0-4.8) k/uL Monocytes # 0.6 (0-1.0) k/uL Eosinophils # 0.1 (0-0.7) k/uL Basophils # 0.0 (0-0.2) k/uL Hypochromasia Moderate PT 20.3 H (9.0-12.0) sec INR 2.0 H (<1.2) APTT 29.0 (22.0-30.0) sec Sodium (137-145) mmol/L Potassium (3.5-5.1) mmol/L Chloride (98-107) mmol/L Carbon Dioxide (22-30) mmol/L Anion Gap mmol/L BUN (9-20) mg/dL Creatinine (0.66-1.25) mg/dL Est GFR (CKD-EPI)AfAm (>60 ml/min/1.73 sqM) Est GFR (CKD-EPI)NonAf (>60 ml/min/1.73 sqM) Glucose (74-99) mg/dL Lactic Ac Sepsis Rflx Plasma Lactic Acid Simeon 7.8 H* (0.7-2.0) mmol/L Calcium (8.4-10.2) mg/dL Phosphorus (2.5-4.5) mg/dL Magnesium (1.6-2.3) mg/dL Total Bilirubin (0.2-1.3) mg/dL AST (17-59) U/L ALT (4-49) U/L Alkaline Phosphatase (38-126) U/L Troponin I (0.000-0.034) ng/mL NT-Pro-B Natriuret Pep pg/mL Total Protein (6.3-8.2) g/dL Albumin (3.5-5.0) g/dL TSH (0.465-4.680) mIU/L 04/04/22 04/04/22 04/04/22 Range/Units 23:21 23:21 23:21 WBC (3.8-10.6) k/uL RBC (4.30-5.90) m/uL Hgb (13.0-17.5) gm/dL Hct (39.0-53.0) % MCV (80.0-100.0) fL MCH (25.0-35.0) pg MCHC (31.0-37.0) g/dL RDW (11.5-15.5) % Plt Count (150-450) k/uL MPV Neutrophils % % Lymphocytes % % Monocytes % % Eosinophils % % Basophils % % Neutrophils # (1.3-7.7) k/uL Lymphocytes # (1.0-4.8) k/uL Monocytes # (0-1.0) k/uL Eosinophils # (0-0.7) k/uL Basophils # (0-0.2) k/uL Hypochromasia PT (9.0-12.0) sec INR (<1.2) APTT (22.0-30.0) sec Sodium 132 L (137-145) mmol/L Potassium 5.8 H (3.5-5.1) mmol/L Chloride 93 L (98-107) mmol/L Carbon Dioxide 16 L (22-30) mmol/L Anion Gap 23 mmol/L BUN 19 (9-20) mg/dL Creatinine 2.06 H (0.66-1.25) mg/dL Est GFR (CKD-EPI)AfAm 35 (>60 ml/min/1.73 sqM) Est GFR (CKD-EPI)NonAf 31 (>60 ml/min/1.73 sqM) Glucose 139 H (74-99) mg/dL Lactic Ac Sepsis Rflx Plasma Lactic Acid Simeon (0.7-2.0) mmol/L Calcium 8.7 (8.4-10.2) mg/dL Phosphorus 5.1 H (2.5-4.5) mg/dL Magnesium 2.5 H (1.6-2.3) mg/dL Total Bilirubin 1.8 H (0.2-1.3) mg/dL AST 78 H (17-59) U/L ALT 39 (4-49) U/L Alkaline Phosphatase 47 (38-126) U/L Troponin I 0.104 H* (0.000-0.034) ng/mL NT-Pro-B Natriuret Pep 99246 pg/mL Total Protein 6.9 (6.3-8.2) g/dL Albumin 4.3 (3.5-5.0) g/dL TSH 0.112 L (0.465-4.680) mIU/L 04/04/22 Range/Units 23:56 WBC (3.8-10.6) k/uL RBC (4.30-5.90) m/uL Hgb (13.0-17.5) gm/dL Hct (39.0-53.0) % MCV (80.0-100.0) fL MCH (25.0-35.0) pg MCHC (31.0-37.0) g/dL RDW (11.5-15.5) % Plt Count (150-450) k/uL MPV Neutrophils % % Lymphocytes % % Monocytes % % Eosinophils % % Basophils % % Neutrophils # (1.3-7.7) k/uL Lymphocytes # (1.0-4.8) k/uL Monocytes # (0-1.0) k/uL Eosinophils # (0-0.7) k/uL Basophils # (0-0.2) k/uL Hypochromasia PT (9.0-12.0) sec INR (<1.2) APTT (22.0-30.0) sec Sodium (137-145) mmol/L Potassium (3.5-5.1) mmol/L Chloride (98-107) mmol/L Carbon Dioxide (22-30) mmol/L Anion Gap mmol/L BUN (9-20) mg/dL Creatinine (0.66-1.25) mg/dL Est GFR (CKD-EPI)AfAm (>60 ml/min/1.73 sqM) Est GFR (CKD-EPI)NonAf (>60 ml/min/1.73 sqM) Glucose (74-99) mg/dL Lactic Ac Sepsis Rflx Y Plasma Lactic Acid Simeon (0.7-2.0) mmol/L Calcium (8.4-10.2) mg/dL Phosphorus (2.5-4.5) mg/dL Magnesium (1.6-2.3) mg/dL Total Bilirubin (0.2-1.3) mg/dL AST (17-59) U/L ALT (4-49) U/L Alkaline Phosphatase (38-126) U/L Troponin I (0.000-0.034) ng/mL NT-Pro-B Natriuret Pep pg/mL Total Protein (6.3-8.2) g/dL Albumin (3.5-5.0) g/dL TSH (0.465-4.680) mIU/L Disposition Clinical Impression: Acute pulmonary edema, Acute exacerbation of chronic obstructive pulmonary disease, Hypoxia, Atrial fibrillation with rapid ventricular response, Weakness, AMS (altered mental status), Elevated troponin Disposition: ADMITTED IP TO THIS HOSP Condition: Serious
[2022-04-05 10:50] VITALS: BP 0/0; PULSE 0; RESP 0
[2022-04-05] MEDS ORDERED: AMIODARONE 450 MG in DEXTROSE 5% IN WATER 250 ML IV SCH ×2 (11:00)
--- NOTE | 2022-04-05 12:01 | P.DS ---
Providers Date of admission: 04/05/22 00:30 Expected date of discharge: 04/05/22 Attending physician: Michael Dueñas MD Consults: 04/05/22 00:30 Consult Physician Routine Consulting Provider: Marge Ferris Consult Reason/Comments: afib,inctrop Do you want consulting provider notified?: Yes Primary care physician: [facility] Hospital Course: Discharge Diagnosis: Atrial fibrillation with RVR Acute COPD exacerbation Lactic acidosis AMPARO on CKD Elevated troponin Hyperkalemia Hospital Course: 77-year-old male with history of CHF status post ICD, atrial fibrillation, COPD, history of hydrocephalus status post shunt presented initially with worsening shortness of breath, increased heart rate. Patient was also acutely encephalopathic. was at bedside. Initial workup showed potassium of 5.8, creatinine of 2.06, lactic acid of 7.8, troponin 0.104. His TSH was low at 0.112. EKG was consistent with atrial flutter with RVR. Chest x-ray showed tiny right pleural effusion. CT head did not show any new changes. Over the course of his brief auscultation in the emergency patient was very agitated and combative. He is also having worsening shortness of breath, hypoxia. Over the course of the morning his blood pressure down trended. Due to worsening medical condition, decided to make him comfort care measures only. Patient at 9:12 on 04/05/22. Patient Condition at Discharge: Undetermined Plan - Discharge Summary New Discharge Prescriptions: No Action Budesonide-Formot 160-4.5 Mcg [Symbicort 160-4.5 Mcg Inhaler] 2 puff INHALATION RT-DAILY Furosemide 40 mg PO DAILY allopurinoL [Allopurinol] 2 cap PO BID Albuterol Nebulized [Ventolin Nebulized] 2.5 mg INHALATION RT-Q4H Albuterol Sulfate [Proair Hfa] 2 puff INHALATION RT-DAILY Aspirin EC [Ecotrin Low Dose] 81 mg PO DAILY calcitrioL [Rocaltrol] 0.25 mcg PO MO Ketoconazole 2% Shampoo [Nizoral] 1 applic TOPICAL DIRECTED Rosuvastatin Calcium [Crestor] 40 mg PO DAILY Tiotropium 18 Mcg/Puff [Spiriva] 1 puff INHALATION RT-DAILY Docusate [Colace] 100 mg PO DAILY Metoprolol Tartrate [Lopressor] 100 mg PO BID tab Apixaban [Eliquis] 5 mg PO BID #60 tab Discharge Medication List Budesonide-Formot 160-4.5 Mcg [Symbicort 160-4.5 Mcg Inhaler] 2 puff INHALATION RT-DAILY 10/09/14 [History] Furosemide 40 mg PO DAILY 10/09/14 [History] allopurinoL [Allopurinol] 2 cap PO BID 10/09/14 [History] Albuterol Nebulized [Ventolin Nebulized] 2.5 mg INHALATION RT-Q4H 07/27/19 [History] Albuterol Sulfate [Proair Hfa] 2 puff INHALATION RT-DAILY 07/27/19 [History] Aspirin EC [Ecotrin Low Dose] 81 mg PO DAILY 07/27/19 [History] Docusate [Colace] 100 mg PO DAILY 07/27/19 [History] Ketoconazole 2% Shampoo [Nizoral] 1 applic TOPICAL DIRECTED 07/27/19 [History] Rosuvastatin Calcium [Crestor] 40 mg PO DAILY 07/27/19 [History] Tiotropium 18 Mcg/Puff [Spiriva] 1 puff INHALATION RT-DAILY 07/27/19 [History] calcitrioL [Rocaltrol] 0.25 mcg PO MO 07/27/19 [History] Apixaban [Eliquis] 5 mg PO BID #60 tab 07/29/19 [Rx] Metoprolol Tartrate [Lopressor] 100 mg PO BID tab 07/29/19 [Rx] Follow up Appointment(s)/Referral(s): [facility],Clinic [Primary Care Provider] - 1-2 days
== END 2022-04-05 11:00 | disposition expired | DRG 951 ==
LOC: EC 22:49 → 3SCARD 04-05 00:30
PROVIDERS: ADMIT Internal Medicine; ATTEND Internal Medicine
DX: Z51.5 Encounter for palliative care (principal); E87.20 Acidosis, unspecified; G93.40 Encephalopathy, unspecified; I13.0 Hypertensive heart and chronic kidney disease with heart failure and stage 1 through stage 4 chronic kidney disease, or unspecified chronic kidney disease; I50.9 Heart failure, unspecified; Z20.822 Contact with and (suspected) exposure to COVID-19; N17.9 Acute kidney failure, unspecified; I42.9 Cardiomyopathy, unspecified; I48.92 Unspecified atrial flutter; N18.9 Chronic kidney disease, unspecified; E11.22 Type 2 diabetes mellitus with diabetic chronic kidney disease; I48.91 Unspecified atrial fibrillation; F91.9 Conduct disorder, unspecified; M10.9 Gout, unspecified; R79.89 Other specified abnormal findings of blood chemistry; N43.3 Hydrocele, unspecified; J43.9 Emphysema, unspecified; Z87.01 Personal history of pneumonia (recurrent); E87.5 Hyperkalemia; H91.90 Unspecified hearing loss, unspecified ear; Z79.01 Long term (current) use of anticoagulants; Z79.4 Long term (current) use of insulin; Z79.51 Long term (current) use of inhaled steroids; Z79.82 Long term (current) use of aspirin; Z79.899 Other long term (current) drug therapy; Z98.2 Presence of cerebrospinal fluid drainage device; Z95.810 Presence of automatic (implantable) cardiac defibrillator
CPT/HCPCS: 36415; 70450; 71045; 80053; 83605; 83735; 83880; 84100; 84443; 84484; 85025; 85610; 85730; 87502; 87635; 93005; 94640